=== PATIENT | female | born 1970 | race Hispanic/Latino ===

== ENCOUNTER 2019-05-28 14:21 | Emergency (ER) | payer OTHER ==
[2019-05-28 15:16] LABS: BASOPHILS % (AUTO) 0.3 % (0.0-5.0); EOSINOPHILS % (AUTO) 0.1 % (0.0-8.0); HEMATOCRIT 38.6 % (36-48); LYMPHOCYTES % (AUTO) 26.7 % (21.0-51.0); MEAN CORPUSCULAR HEMOGLOBIN 30.3 pg (27.0-33.0); MEAN CORPUSCULAR HGB CONC 33.9 g/dL (32.0-36.0); MEAN CORPUSCULAR VOLUME 89.1 fL (79-99); MONOCYTES % (AUTO) 4.6 % (3.0-13.0); NEUTROPHILS % (AUTO) 67.8 % (40.0-77.0); PLATELET COUNT (AUTO) 181 K/uL (130-400); RED BLOOD CELL COUNT(AUTO) 4.33 MIL/uL (4.00-5.50); RED CELL DISTRIBUTION WIDTH 12.8 % (11.0-15.5); WHITE BLOOD COUNT (AUTO) 8.7 K/uL (4.8-10.8)
[2019-05-28 15:19] LABS: APPEARANCE,URINE Clear (CLEAR); BILIRUBIN,URINE Negative (NEGATIVE); COLOR,URINE Yellow (YELLOW); GLUCOSE, URINE (UA) Negative (NEGATIVE); KETONES,URINE Negative (NEGATIVE); LEUKOCYTE ESTERASE ,URINE Negative (NEGATIVE); NITRATE,URINE Negative (NEGATIVE); OCCULT BLOOD,URINE Negative (NEGATIVE); PROTEIN,URINE Negative (NEGATIVE); UROBILINOGEN,URINE 0.2 mg/dL (0.2-1.0)
[2019-05-28 15:26] LABS: CREATININE 0.6 mg/dL (0.5-1.5); POTASSIUM 3.5 mmol/L (3.5-5.1)
[2019-05-28 15:29] LABS: AMPHET/METH SCREEN,URINE NEGATIVE (NEGATIVE); BARBITURATE SCREEN, URINE NEGATIVE (NEGATIVE); BENZODIAZEPINES SCREEN,URINE NEGATIVE (NEGATIVE); CANNABINOID SCREEN,URINE NEGATIVE (NEGATIVE); COCAINE SCREEN,URINE POSITIVE (NEGATIVE); INR 0.89 (0.85-1.15); OPIATE SCREEN,URINE NEGATIVE (NEGATIVE); PARTIAL THROMBOPLASTIN TIME 24.1 SEC (26.3-35.5); PHENCYCLIDINE SCREEN,URINE NEGATIVE (NEGATIVE); PROTHROMBIN TIME 9.4 SEC (9.6-11.6)
[2019-05-28 15:31] LABS: ALBUMIN 3.4 g/dL (3.5-5.0); BILIRUBIN,TOTAL 0.4 mg/dL (0.2-1.0); TOTAL PROTEIN, SERUM 6.9 g/dL (6.0-8.3)
[2019-05-28] MEDS ORDERED: ASPIRIN 325 MG TABLET ONE (15:39)
[2019-05-28] MEDS ORDERED: NITROGLYCERIN 1GM/1 INCH PACKET TD ONE (15:39)
[2019-05-28] MEDS ORDERED: LORAZEPAM 2 MG/ML 1 ML VIAL ONE (16:22)
[2019-05-28] MEDS ORDERED: SODIUM CHLORIDE 0.9% 1000ML 1,000 ML IV ONE ×3 (16:23→18:20)
== END 2019-05-28 20:17 | disposition home or self-care (01) ==
LOC: EDH 14:21
DX: R07.89 Other chest pain (principal); F14.10 Cocaine abuse, uncomplicated; F10.129 Alcohol abuse with intoxication, unspecified
CPT/HCPCS: 36415; 71045; 80053; 80305; 81003; 82550 ×2; 84484 ×2; 85025; 85610; 85730; 93005; 96374; 99285; G0480; J2060; J7030 ×3

== ENCOUNTER 2020-01-02 12:03 | Emergency (ER) | payer OTHER | END 2020-01-02 13:02 | disposition home or self-care (01) | LOC: EDH 12:03 | DX: J30.2 Other seasonal allergic rhinitis (principal); J01.90 Acute sinusitis, unspecified; F31.9 Bipolar disorder, unspecified; F43.10 Post-traumatic stress disorder, unspecified; Z98.890 Other specified postprocedural states | CPT/HCPCS: 87880 ==

== ENCOUNTER 2023-06-21 19:05 | Emergency (ER) | payer MEDICARE ==
[~2023-06-21] VITALS: Ht 162.6 cm; Wt 111.6 kg
[2023-06-21 19:37] LABS: BASOPHILS # (AUTO) 0.03 K/uL (0.00-0.20); BASOPHILS % (AUTO) 0.4 % (0.0-5.0); EOSINOPHILS # (AUTO) 0.11 K/uL (0.00-0.70); EOSINOPHILS % (AUTO) 1.6 % (0.0-8.0); HEMATOCRIT 38.3 % (36-48); IMMATURE GRANULOCYTE ABSOLUTE 0.02 K/uL (0-1); LYMPHOCYTES # (AUTO) 3.4 K/uL (1.0-4.8); LYMPHOCYTES % (AUTO) 48.6 % (21.0-51.0); MEAN CORPUSCULAR HGB CONC 33.4 g/dL (32.0-36.0); MEAN CORPUSCULAR VOLUME 92.7 fL (79-99); MONOCYTES # (AUTO) 0.4 K/uL (0.1-1.0); MONOCYTES % (AUTO) 5.7 % (3.0-13.0); NEUTROPHILS % (AUTO) 43.4 % (40.0-77.0); PLATELET COUNT (AUTO) 174 K/uL (130-400); RED BLOOD CELL COUNT(AUTO) 4.13 MIL/uL (4.00-5.50); RED CELL DISTRIBUTION WIDTH 12.5 % (11.0-15.5)
[2023-06-21 19:38] LABS: ADD UA MICROSCOPIC YES; APPEARANCE,URINE CLEAR (CLEAR); BILIRUBIN,URINE NEGATIVE (NEGATIVE); COLOR,URINE COLORLESS (YELLOW); GLUCOSE, URINE (UA) NEGATIVE (NEGATIVE); KETONES,URINE NEGATIVE (NEGATIVE); LEUKOCYTE ESTERASE ,URINE NEGATIVE Leu/uL (NEGATIVE); NITRATE,URINE NEGATIVE (NEGATIVE); OCCULT BLOOD,URINE NEGATIVE (NEGATIVE); PH,URINE 5.5 (5.0-8.0); PROTEIN,URINE NEGATIVE (NEGATIVE); UROBILINOGEN,URINE 0.2 mg/dL (0.2-1.0)
[2023-06-21 19:40] LABS: SQUAMOUS EPITHELIAL CELL,UR FEW /HPF (0-2)
[2023-06-21 19:45] LABS: CREATININE 0.9 mg/dL (0.5-1.5); POTASSIUM 3.6 mmol/L (3.5-5.1)
[2023-06-21 20:00] LABS: ALBUMIN 3.7 g/dL (3.5-5.0); BILIRUBIN,TOTAL 0.7 mg/dL (0.2-1.0); TOTAL PROTEIN, SERUM 7.1 g/dL (6.0-8.3)
[2023-06-21] MEDS: MAG/ALUM/SIMETH 30 ML UDCUP PO ONE (23:13)
[2023-06-21] MEDS: ONDANSETRON ODT 4MG TAB SL ONE (23:13)
[2023-06-21] MEDS: DICYCLOMINE HCL 10 MG/5 ML ML PO SCH (23:13)
[2023-06-21 23:22] VITALS: BP 135/90; PULSE 75; RESP 18; O2SAT 100
[2023-06-21] MEDS: LIDOCAINE HCL 2% VISCOUS 15 ML UDCUP PO ONE (23:23)
[2023-06-21] MEDS ORDERED: FAMO20TA8 PO (23:50)
[2023-06-21] MEDS ORDERED: ONDA4TAB10 PO (23:50)
== END 2023-06-22 00:08 | disposition home or self-care (01) ==
LOC: EDH 19:05
DX: K21.9 Gastro-esophageal reflux disease without esophagitis (principal); K29.70 Gastritis, unspecified, without bleeding; E11.9 Type 2 diabetes mellitus without complications; F41.9 Anxiety disorder, unspecified; F32.A Depression, unspecified; Z90.49 Acquired absence of other specified parts of digestive tract; Z90.710 Acquired absence of both cervix and uterus; Z98.890 Other specified postprocedural states
CPT/HCPCS: 36415; 71045; 76705; 80053; 81001; 83690; 84484; 85025; 93005

== ENCOUNTER → 2023-11-27 | Outpatient (CLI) | payer OTHER, MEDICARE ==
[~2023-11-27] MED LIST: FAMO20TA8 PO; ONDA-243 PO
== END | disposition home or self-care (01) ==
LOC: RAH 08:45
PROVIDERS: ATTEND Physician Assistant
DX: M50.323 Other cervical disc degeneration at C6-C7 level (principal); M48.02 Spinal stenosis, cervical region; Z98.890 Other specified postprocedural states
CPT/HCPCS: 72141

== ENCOUNTER 2024-09-07 09:15 | Emergency (ER) | payer OTHER, MEDICARE ==
[~2024-09-07] VITALS: Ht 162.6 cm; Wt 93.4 kg
[~2024-09-07 09:15] MED LIST changes: +AMOX1TAB16 PO; +DICY20TA2 PO
--- NOTE | 2024-09-07 09:40 | ERN ---
General Chief Complaint: Hyperglycemia Stated Complaint: HYPERGLYCEMIA Time Seen by MD: 09:19 History of Present Illness Initial Comments 54-year-old female presents for a rash sugar check. Patient is asymptomatic. She reports that she was a diabetic in the past and had to take metformin, but she has been controlling this with diet. She had not checked her sugar in awhile, and at home she checked her glucose monitor and it read 375. She presents today for re-evaluation. She reports that the glucose monitor is very old and she is unsure if it is correct. She denies any other symptoms. Allergies: Coded Allergies: No Known Drug Allergies (Unverified Allergy, Unknown, 05/28/19) Home Meds Active Scripts Amoxicillin/Potassium Clav (Amox Tr-K Clv 875-125 mg Tab) 875 Mg-125 Mg Tablet, 1 EACH PO BID for 5 Days, #10 TAB 0 Refills Prov:KEERTHI ORLANDO PA 06/29/24 Dicyclomine HCl (Bentyl) 20 Mg Tab, 20 MG PO Q6HPRN PRN for ABDOMINAL PAIN CRAMPING, #30 TAB Prov:CONOR NIÑO CHIEF LIBR[employer]IAN [employer]PARTMENT 02/14/24 Ondansetron (Ondansetron Odt) 4 Mg Tab.rapdis, 4 MG PO Q6HPRN PRN for nausea, #1 6 TAB 0 Refills Prov:CONOR NIÑO [employer]IEF [employer]MENT 02/14/24 Famotidine (Famotidine) 20 Mg Tablet, 20 MG PO BID, #30 TAB 0 Refills Prov:BETHANY AUGUST CHIEF LIB[employer]IAN [employer]IC [employer]PARTMENT 06/21/23 Ondansetron (Ondansetron Odt) 4 Mg Tab.rapdis, 4 MG PO Q6HPRN PRN for nausea, #15 TAB 0 Refills Prov:BETHANY AUGUST CHIEF [employer]IAN [employer]IC [employer]PARTMENT 06/21/23 Past Medical History Past Medical History: Diabetes-Type II, Hypertension Past Surgical History: Other, Surgical History Other: SPINAL CORD DECOMPRESSION Female( History) History: Not Applicable ROS Dictation CONSTITUTIONAL: No chills, no fever, no weakness, no diaphoresis, no malaise. HEAD/FACE: No signs of trauma. EENT: No eye pain, no blurred vision, no tearing, no double vision, no ear pain, no ear discharge, no nose pain, no nasal congestion, no throat pain, no throat swelling, no mouth pain. RESPIRATORY: No cough, no orthopnea, no SOB, no stridor, no wheezing. CARDIOVASCULAR: No chest pain, no edema, no palpitations, no syncope. GASTROINTESTINAL/ABDOMINAL: No abdominal pain, no constipation, no diarrhea, no nausea, no vomiting. GENITOURINARY: No abnormal discharge, no dysuria, no frequent urination, no hematuria. No complaints of pain in the genitals. MUSCULOSKELETAL: No back pain, no gout, no joint pain, no joint swelling, no muscle pain, no muscle stiffness, no neck pain. INTEGUMENTARY: No change in color, no change in hair/nails, no dryness, no lesion, no lumps, no rash. NEUROLOGICAL/PSYCH: No anxiety, not depressed, no emotional problem, no headache, no numbness, no pre-existing deficit, no history of seizures, no tremors, no weakness. HEMATOLOGIC/LYMPHATIC: Not anemic, no history of blood clots, no apparent bleeding, no bruising, glands not swollen. All Systems Negative, Except as Noted. Physical Exam Physical Exam Dictation VITAL SIGNS: Reviewed. GENERAL APPEARANCE: Alert, oriented x3, no acute distress, obese. HEAD AND FACE: Non-traumatic. EYES: PERRL, pink conjunctivas, eyelid no trauma, anterior chamber clear. EARS: Pinnas intact and no signs of trauma or erythema. Ear canals clear and no discharge. TMs no erythema. NOSE: No discharge, no bleeding. OROPHARYNX: Mouth normal, teeth no caries, tongue pink. Pharynx clear, no eryt tejas. Tonsils no exudates, no abscesses noted. Mucous membrane moist. NECK: Supple, non-tender, no thyromegaly, no masses, no JVD, no bruits. BREAST: Deferred. CHEST: No tenderness, no crepitus, no paradoxical movement, no retractions. LUNGS: Clear, well-ventilated, symmetric, no rales, no wheezing, no rhonchi, no stridor, good breath sounds bilaterally. HEART: Regular rate, regular rhythm, no murmur, no gallops. VASCULAR: No peripheral edema. ABDOMEN: Soft, positive bowel sounds, nondistended, no guarding, nontender, no rebound, no masses no hepatomegaly, no splenomegaly, no Chavarria's sign, no hernias. RECTAL: Deferred. GENITAL: Deferred. NEUROLOGICAL: Normal speech, gross motor function intact, gross sensory function intact. MUSCULOSKELETAL: Neck nontender, full range of motion, back nontender, full range of motion. EXTREMITIES: Nontender, full range of motion. SKIN: Color pink, dry, no turgor, no rash, no lacerations, no abrasions, no contusions. LYMPHATICS: Deferred. Results Laboratory and Microbiology Lab and Micro Result Laboratory Tests Test 09/07/24 09:19 09/07/24 09:29 Whole Blood Glucose 80 MG/DL (70-110) White Blood Count 4.3 K/uL (4.8-10.8) L Red Blood Count 4.15 MIL/uL (4.00-5.50) Hemoglobin 13.1 g/dL (12.0-16.0) Hematocrit 38.9 % (36-48) Mean Corpuscular Volume 93.7 fL (79-99) Mean Corpuscular Hemoglobin 31.6 pg (27.0-33.0) Mean Corpuscular Hemoglobin Concent 33.7 g/dL (32.0-36.0) Red Cell Distribution Width 12.9 % (11.0-15.5) Platelet Count 169 K/uL (130-400) Mean Platelet Volume 9.9 fL (7.5-10.5) Immature Granulocyte % (Auto) 0.0 % (0-1) Neutrophils (%) (Auto) 40.7 % (40.0-77.0) Lymphocytes (%) (Auto) 51.7 % (21.0-51.0) H Monocytes (%) (Auto) 5.3 % (3.0-13.0) Eosinophils (%) (Auto) 1.8 % (0.0-8.0) Basophils (%) (Auto) 0.5 % (0.0-5.0) Neutrophils # (Auto) 1.8 K/uL (1.8-7.7) Lymphocytes # (Auto) 2.2 K/uL (1.0-4.8) Monocytes # (Auto) 0.2 K/uL (0.1-1.0) Eosinophils # (Auto) 0.08 K/uL (0.00-0.70) Basophils # (Auto) 0.02 K/uL (0.00-0.20) Absolute Immature Granulocyte (auto 0.00 K/uL (0-1) Nucleated Red Blood Cells 0.0 % (0.0-0.19) Sodium Level 142 mmol/L (136-145) Potassium Level 4.3 mmol/L (3.5-5.1) Chloride Level 107 mmol/L (101-111) Carbon Dioxide Level 28 mmol/L (21-32) Blood Urea Nitrogen 7 mg/dL (7-18) Creatinine 0.6 mg/dL (0.5-1.0) Glomerular Filtration Rate Calc 107 mL/min (>90) Random Glucose 84 mg/dL (70-105) Total Calcium 9.0 mg/dL (8.5-10.1) MDM CC: No complaints, concern for hyperglycemia Limitations by social determinants of health: None Differential diagnosis: Hyperglycemia, other Comorbidities: History of diabetes Vitals are stable Clinical exam is unremarkable I ordered lab work, the CBC and metabolic panel are normal. No signs of hyperglycemia. I suspect the patient's glucometer was not working. We will discharge with glucometer prescription. ED Course Orders Procedure Category Date Status Time Cbc With Differential LAB 09/07/24 Complete 09:22 Basic Metabolic Panel LAB 09/07/24 Complete 09:22 Vital Signs Date Time Temp Pulse Resp B/P (MAP) Pulse Ox O2 Delivery O2 Flow Rate FiO2 09/07/24 09:16 98.1 65 14 147/82 99 0 DX & DISP Disposition: Discharge Departure Impression: Primary Impression: Anxiety about health Condition: Stable Scripts Blood-Glucose Meter (Blood Glucose Meter) 1 Each Each EACH , #1 Prov: MICHELLE GUTIÉRREZ DO 09/07/24 Additional Instructions: Your blood glucose is normal here in the ER. I suspect that your glucometer is not functioning. I have given you a prescription for a glucometer and new strips. Referrals: [facility] (PCP) MICHELLE GUTIÉRREZ DO September 07, 2024 09:40
[2024-09-07 09:46] LABS: BASOPHILS # (AUTO) 0.02 K/uL (0.00-0.20); BASOPHILS % (AUTO) 0.5 % (0.0-5.0); EOSINOPHILS # (AUTO) 0.08 K/uL (0.00-0.70); EOSINOPHILS % (AUTO) 1.8 % (0.0-8.0); HEMATOCRIT 38.9 % (36-48); LYMPHOCYTES # (AUTO) 2.2 K/uL (1.0-4.8); LYMPHOCYTES % (AUTO) 51.7 % (21.0-51.0); MEAN CORPUSCULAR HEMOGLOBIN 31.6 pg (27.0-33.0); MEAN CORPUSCULAR HGB CONC 33.7 g/dL (32.0-36.0); MEAN CORPUSCULAR VOLUME 93.7 fL (79-99); MONOCYTES # (AUTO) 0.2 K/uL (0.1-1.0); MONOCYTES % (AUTO) 5.3 % (3.0-13.0); NEUTROPHILS # (AUTO) 1.8 K/uL (1.8-7.7); NEUTROPHILS % (AUTO) 40.7 % (40.0-77.0); PLATELET COUNT (AUTO) 169 K/uL (130-400); RED BLOOD CELL COUNT(AUTO) 4.15 MIL/uL (4.00-5.50); RED CELL DISTRIBUTION WIDTH 12.9 % (11.0-15.5); WHITE BLOOD COUNT (AUTO) 4.3 K/uL (4.8-10.8)
[2024-09-07 09:53] LABS: CREATININE 0.6 mg/dL (0.5-1.0); POTASSIUM 4.3 mmol/L (3.5-5.1)
[2024-09-07] MEDS ORDERED: BLOO-140 MC (10:17)
[2024-09-07 12:00] VITALS: BP 126/81; PULSE 63; RESP 14; TEMP 98.1; O2SAT 95
== END 2024-09-07 12:20 | disposition home or self-care (01) ==
LOC: EDH 09:15
DX: F41.9 Anxiety disorder, unspecified (principal); E11.65 Type 2 diabetes mellitus with hyperglycemia; I10 Essential (primary) hypertension
CPT/HCPCS: 36415; 80048; 82948; 85025; 99283

== ENCOUNTER 2024-11-26 12:41 | Emergency (ER) | payer OTHER, MEDICARE ==
[~2024-11-26] VITALS: Ht 162.6 cm; Wt 88.5 kg
[~2024-11-26 12:41] MED LIST changes: +BLOO-140 MC
[2024-11-26 12:43] VITALS: BP 118/83; PULSE 75; RESP 18; TEMP 98.2
--- NOTE | 2024-11-26 12:59 | ERN ---
General Chief Complaint: Dizzy/Light Headed Stated Complaint: DIZZY Time Seen by MD: 12:43 Source: patient History of Present Illness Initial Comments Patient is a 54-year-old female coming in complaining of dizziness. She states that he has been she walks she feels a little dizzy. She states that this is accompanied with right ear pain. Allergies: Coded Allergies: No Known Drug Allergies (Unverified Allergy, Unknown, 05/28/19) Home Meds Active Scripts Blood-Glucose Meter (Blood Glucose Meter) 1 Each Each, EACH , #1 Prov:MARLAMICHELLE Elia DO 09/07/24 Amoxicillin/Potassium Clav (Amox Tr-K Clv 875-125 mg Tab) 875 Mg-125 Mg Tablet, 1 EACH PO BID for 5 Days, #10 TAB 0 Refills Prov:KEERTHI ORLANDO 06/29/24 Dicyclomine HCl (Bentyl) 20 Mg Tab, 20 MG PO Q6HPRN PRN for ABDOMINAL PAIN CRAMPING, #30 TAB Prov:CONOR NIÑO SOFTWARE PACKAGING ENGINEER 02/14/24 Ondansetron (Ondansetron Odt) 4 Mg Tab.rapdis, 4 MG PO Q6HPRN PRN for nausea, #16 TAB 0 Refills Prov:CONOR NIÑO SOFTWARE PACKAGING ENGINEER 02/14/24 Famotidine (Famotidine) 20 Mg Tablet, 20 MG PO BID, #30 TAB 0 Refills Prov:BETHANY AUGUST SOFTWARE PACKAGING ENGINEER 06/21/23 Ondansetron (Ondansetron Odt) 4 Mg Tab.rapdis, 4 MG PO Q6HPRN PRN for nausea, #15 TAB 0 Refills Prov:BETHANY AUGUST SOFTWARE PACKAGING ENGINEER 06/21/23 Past Medical History Past Medical History: Diabetes-Type II, Hypertension Past Surgical History: Other, Surgical History Other: SPINAL CORD DECOMPRESSION Female( History) History: Not Applicable ROS Dictation CONSTITUTIONAL: No chills, no fever, no weakness, no diaphoresis, no malaise. HEAD/FACE: No signs of trauma. EENT: No eye pain, no blurred vision, no tearing, no double vision, ear pain, no ear discharge, no nose pain, no nasal congestion, no throat pain, no throat swelling, no mouth pain. RESPIRATORY: No cough, no orthopnea, no SOB, no stridor, no wheezing. CARDIOVASCULAR: No chest pain, no edema, no palpitations, no syncope. GASTROINTESTINAL/ABDOMINAL: No abdominal pain, no constipation, no diarrhea, no nausea, no vomiting. GENITOURINARY: No abnormal discharge, no dysuria, no frequent urination, no hematuria. No complaints of pain in the genitals. MUSCULOSKELETAL: No back pain, no gout, no joint pain, no joint swelling, no muscle pain, no muscle stiffness, no neck pain. INTEGUMENTARY: No change in color, no change in hair/nails, no dryness, no lesion, no lumps, no rash. NEUROLOGICAL/PSYCH: No anxiety, not depressed, no emotional problem, no headache, no numbness, no pre-existing deficit, no history of seizures, no tremors, no weakness. HEMATOLOGIC/LYMPHATIC: Not anemic, no history of blood clots, no apparent bleeding, no bruising, glands not swollen. All Systems Negative, Except as Noted. Physical Exam Physical Exam Dictation VITAL SIGNS: Reviewed. GENERAL APPEARANCE: Alert, oriented x3, no acute distress, obese. HEAD AND FACE: Non-traumatic. Left maxillary sinus tenderness on palpation EYES: PERRL, pink conjunctivas, eyelid no trauma, anterior chamber clear. EARS: Pinnas intact and no signs of trauma or erythema. Ear canals clear and no discharge. TMs no erythema. Cerumen impaction bilateral NOSE: No discharge, no bleeding. Bilateral nasal turbinate swelling OROPHARYNX: Mouth normal, teeth no caries, tongue pink. Pharynx clear, no erythema. Tonsils exudates, no abscesses noted. Mucous membrane moist. NECK: Supple, non-tender, no thyromegaly, no masses, no JVD, no bruits. BREAST: Deferred. CHEST: No tenderness, no crepitus, no paradoxical movement, no retractions. LUNGS: Clear, well-ventilated, symmetric, no rales, no wheezing, no rhonchi, no stridor, good breath sounds bilaterally. HEART: Regular rate, regular rhythm, no murmur, no gallops. VASCULAR: No peripheral edema. ABDOMEN: Soft, positive bowel sounds, nondistended, no guarding, nontender, no rebound, no masses no hepatomegaly, no splenomegaly, no Chavarria's sign, no hernias. RECTAL: Deferred. GENITAL: Deferred. NEUROLOGICAL: Normal speech, gross motor function intact, gross sensory function intact. MUSCULOSKELETAL: Neck nontender, full range of motion, back nontender, full range of motion. EXTREMITIES: Nontender, full range of motion. SKIN: Color pink, dry, no turgor, no rash, no lacerations, no abrasions, no contusions. LYMPHATICS: Deferred. Results Laboratory and Microbiology Lab and Micro Result Laboratory Tests Test 11/26/24 12:56 11/26/24 13:09 Urine Color YELLOW (YELLOW) Urine Appearance CLOUDY (CLEAR) H Urine pH 6.0 (5.0-8.0) Urine Specific Dennis 1.027 (1.001-1.031) Urine Protein 10 mg/dL (NEGATIVE) H Urine Glucose (UA) NEGATIVE mg/dL (NEGATIVE) Urine Ketones NEGATIVE mg/dL (NEGATIVE) Urine Occult Blood NEGATIVE (NEGATIVE) Urine Nitrate NEGATIVE (NEGATIVE) Urine Bilirubin NEGATIVE mg/dL (NEGATIVE) Urine Urobilinogen 0.2 mg/dL (0.2-1.0) Urine Leukocyte Esterase 500 Ledy/uL (NEGATIVE) H Urine RBC 2-5 /HPF (0-1) H Urine WBC 26-50 /HPF (0-1) H Urine Squamous Epithelial Cells MANY /HPF (0-2) Urine Non-Squamous Epithelial Cells 2 /HPF (0-2) Urine Bacteria RARE /HPF (None Seen) White Blood Count 4.2 K/uL (4.8-10.8) L Red Blood Count 4.15 MIL/uL (4.00-5.50) Hemoglobin 13.1 g/dL (12.0-16.0) Hematocrit 39.1 % (36-48) Mean Corpuscular Volume 94.2 fL (79-99) Mean Corpuscular Hemoglobin 31.6 pg (27.0-33.0) Mean Corpuscular Hemoglobin Concent 33.5 g/dL (32.0-36.0) Red Cell Distribution Width 12.7 % (11.0-15.5) Platelet Count 157 K/uL (130-400) Mean Platelet Volume 9.8 fL (7.5-10.5) Nucleated Red Blood Cells 0.0 % (0.0-0.19) Sodium Level 143 mmol/L (136-145) Potassium Level 3.8 mmol/L (3.5-5.1) Chloride Level 105 mmol/L (101-111) Carbon Dioxide Level 32 mmol/L (21-32) Blood Urea Nitrogen 11 mg/dL (7-18) Creatinine 0.7 mg/dL (0.5-1.0) Glomerular Filtration Rate Calc 103 mL/min (>90) Random Glucose 83 mg/dL (70-105) Total Calcium 8.9 mg/dL (8.5-10.1) Labs Reviewed?: Yes MDM MDM: Differential diagnosis: Cerumen impaction, UTI, sinusitis, Rationale: Tests considered and ordered secondary to shared decision making include: Previous outside records reviewed: Old ER visits. Risk of complication and/or morbidity or mortality of patient management: None Medications-Per medication reconciliation Need for hospitalization: Patient does not meet criteria for hospitalization. Need for emergency major/minor surgery: No There are no social concerns with this patient. Prescription drug management Prescriptions will include symptomatic care Patient's prior external medical records from other ER visits were reviewed by me as indicated. Prior testing and results from previous visits were reviewed. Prior tests were taken into account with medical decision making and resource utilization, independent historian/historians were used to obtain complete med [facility] history. I independently interpreted the test that were performed, results were reviewed by me and considered findings on radiology if ordered. Medical management and examination interpretation discussions were had by me with other qualified healthcare professionals as indicated for the patient's care. ED Course Orders Procedure Category Date Status Time Dexamethasone 4mg/Ml PHA 11/26/24 Complete 1ml Vial (Dexametha 13:00 Urinalysis LAB 11/26/24 Complete W/Microscopic 12:56 12 Lead Ekg Tracing- EKG 11/26/24 Complete Technical 12:56 Cbc Without LAB 11/26/24 Complete Differential 13:04 Basic Metabolic Panel LAB 11/26/24 Complete 13:04 Culture Urine ISH 11/26/24 In Process 13:16 Ceftriaxone 1g Vial PHA 11/26/24 Verified (Rocephine 1g Inj) 14:00 Ketorolac PHA 11/26/24 Verified Tromethamine 30mg/Ml 14:00 Current Medications Medications (Trade) Dose Ordered Sig/[place] Route PRN Reason Start Time Stop Time Status Last Admin Dose Admin Dexamethasone Sodium Phosphate (dexaMETHasone 4MG/ML 1ML VIAL) 4 mg ONCE ONCE IM 11/26/24 13:00 11/26/24 13:01 DC 11/26/24 13:06 Vital Signs Date Time Temp Pulse Resp B/P (MAP) Pulse Ox O2 Delivery O2 Flow Rate FiO2 11/26/24 12:43 98.2 75 18 118/83 98 1:00 p.m. patient was signed out to me by a.m. physician. This is a 54-year-old female who presented to the emergency room with complaints of left-sided neck pain and feeling dizzy and having nausea for the past 2-3 days. She also reported that she had pain in her right ear only 1 time last night no fever chills or rigors. Temperature 98.2 pulse 75 respirations 18 blood pressure 118/83 with a pulse oximetry of 98% on room air Chronic medical problems include diabetes mellitus, hypertension, history of cervical spine stenosis, history of cocaine and alcohol use. General: awake, alert, NAD obese female Head/Face: Normocephalic, atraumatic Eyes: PERRL, EOMI, vision at baseline ENT: oral cavity clear, TMs clear, no signs of infection Neck: Trachea midline, supple, no nuchal rigidity no carotid bruit. Cardiovascular: RRR, normal S1/S2, No MRGs, no JVD Respiratory: CTAB, no respiratory distress, No rales or wheezes Abdomen: Soft, non-tender, non-distended, normal bowel sounds, no guarding or rebound. Skin: Warm, dry, normal turgor, no rash MS/Extremity: Pulses equal, no cyanosis, neurovascular intact, FROM Neuro: COAx4, GCS 15, strength 5/5, CN 2-12 intact, normal cerebellar exam, normal gait, Psych: Normal behavior, mood, and affect normal Extremities-trace edema without any palpable cords, Homans sign is negative Diagnostic tests-labs reviewed CBC showed a white count of 4.2 otherwise normal BNP 7 is with a normal limits. Urinalysis showed positive leuko esterase in creased WBCs consistent with a UTI. I updated the patient on all the available information and also 12 lead EKG which was unremarkable possibly current presentation maybe related to cervical stenosis as well as perhaps mild dehydration due to UTI. The other possibility is sinusitis. She denied any obvious vertigo and there was no nystagmus. No neurological symptoms or deaf whatsoever Plan is to give a dose of antibiotic here, a nonsteroidal for the neck pain and DC to follow up with her primary care physician. I also encouraged her to follow up with her neurosurgeon and she verbalized full understanding DX & DISP Disposition: Discharge Departure Impression: Primary Impression: Dizziness Additional Impressions: Mild dehydration, Cervical stenosis of spine, Diabetes mellitus, Hypertension, Obesity Condition: Stable Scripts Cyclobenzaprine HCl (Cyclobenzaprine HCl) 5 Mg Tablet 1 TAB PO TIDP PRN for muscle spasms for 3 Days, #9 TAB 0 Refills Prov: SHO QUIROZ MD 11/26/24 Nitrofurantoin Monohyd/M-Cryst (Macrobid 100 mg Capsule) 100 Mg Capsule 1 CAP PO BID for 7 Days, #14 CAP 0 Refills Prov: SHO QUIROZ MD 11/26/24 Prednisone (Prednisone) 20 Mg Tablet 1 TAB PO AD for 6 Days, #14 TAB 0 Refills TAKE 1 TAB BY MOUTH THREE TIMES PER DAY X3 DAYS, THEN TAKE 1 TAB BY MOUTH TWICE A DAY X2 DAYS, THEN TAKE 1 TAB BY MOUTH ONCE A DAY X1 DAY. Prov: SHO QUIROZ MD 11/26/24 Additional Instructions: Patient and the caregiver have been informed of all the diagnostic tests and the imaging conducted during the today's visit to the emergency room and has verbalized understanding of the results I have personally reviewed and interpreted all diagnostic exams performed here in the ER today as well as the vital signs documented by the nursing staff. The patient is now being discharg ed to home and should follow up with the primary care physician or the specialist as directed by the ER staff. Follow-up with primary care provider in 1 to 2 days. Take medications as directed here in the emergency room. Okay to continue home medications unless otherwise discussed during your visit in the emergency room today. Return to your nearest emergency room if symptoms worsen or if there is no improvement. Call 911 if you need immediate assistance. Take Tylenol or Motrin [id number] as needed and if no contraindications are present. Increase oral hydration. A wound culture or urine culture was ordered here in the emergency room department please follow-up with primary care provider and advise them to get repeat ports from our facility. If you had any Kyle wrap/splints that were applied here, please do not remove them until you see your primary care or specialty. I have also discussed the adverse effects of the steroids which could trend up her sugars temporarily and she verbalized understanding Referrals: [facility] (PCP) PEPE LOZANO MD Nov 26, 2024 12:59 SHO QUIROZ MD Nov 26, 2024 13:54
--- NOTE | 2024-11-26 13:06 | EKG ---
[facility] Test Date: 2024-11-26 Test Time: 13:01:34 Pat Name: TANA SPENCE Department: ED Room: Gender: F Loss Prevention Supervisor: [id number] : 1970 Requested By: PEPE LOZANO Order Number: [id number] Reading MD: Mariana Cisse Measurements Intervals [place] Rate: 63 P: 60 KS: 179 QRS: 53 QRSD: 100 T: 45 QT: 394 QTc: 400 Interpretive Statements Sinus rhythm Ventricular premature complex Low voltage, precordial leads Compared to ECG 02/14/2024 18:49:57 Ventricular premature complex(es) now present Low QRS voltage now present Electronically Signed On 11-26-2024 16:46:47 CDT by Mariana Cisse Please click the below link to view image of tracing.
[2024-11-26 13:12] LABS: NUCLEATED RED BLOOD CELLS 0.0 % (0.0-0.19); PLATELET COUNT (AUTO) 157.0 K/uL (130-400); RED BLOOD CELL COUNT(AUTO) 4.15 MIL/uL (4.00-5.50); RED CELL DISTRIBUTION WIDTH 12.7 % (11.0-15.5); WHITE BLOOD COUNT (AUTO) 4.2 K/uL (4.8-10.8)
[2024-11-26 13:14] LABS: APPEARANCE,URINE CLOUDY (CLEAR); GLUCOSE, URINE (UA) NEGATIVE (NEGATIVE); LEUKOCYTE ESTERASE ,URINE 500 Leu/uL (NEGATIVE); NITRATE,URINE NEGATIVE (NEGATIVE); NON-SQUAMOUS EPITHELIAL CELL 2 /HPF (0-2); OCCULT BLOOD,URINE NEGATIVE (NEGATIVE); SQUAMOUS EPITHELIAL CELL,UR MANY /HPF (0-2)
[2024-11-26 13:19] LABS: CREATININE 0.7 mg/dL (0.5-1.0); GLOMERULAR FILTR. RATE CALC 103.0 mL/min (>90); GLUCOSE,RANDOM 83.0 mg/dL (70-105); SODIUM SERUM 143.0 mmol/L (136-145); UREA NITROGEN, BLOOD 11.0 mg/dL (7-18)
[2024-11-26] MEDS ORDERED: PRED20TA3 PO (13:54)
[2024-11-26] MEDS ORDERED: CYCL5TAB3 PO (13:54)
[2024-11-26] MEDS ORDERED: NITR100C4 PO (13:54)
== END 2024-11-26 14:08 | disposition home or self-care (01) ==
LOC: EDH 12:41
DX: R42 Dizziness and giddiness (principal); E86.0 Dehydration; M48.02 Spinal stenosis, cervical region; E11.9 Type 2 diabetes mellitus without complications; E66.9 Obesity, unspecified; I10 Essential (primary) hypertension; Z68.33 Body mass index [BMI] 33.0-33.9, adult; Z79.899 Other long term (current) drug therapy
CPT/HCPCS: 99284; 80048; 85027; 87086; 81001; 36415; 96372 ×3; 93005; J1885; J1100; J0696